=== PATIENT | male | born 1960 | race Caucasian/White ===

== ENCOUNTER → 2022-04-03 15:03 | Outpatient (CLI) | payer OTHER, SELFPAY ==
--- NOTE | 2022-04-03 | DI.RAD.S_ITS ---
PROCEDURE: XR CHEST 2V INDICATIONS: cough, unspecified TECHNIQUE: 2 views of the chest were acquired. COMPARISON: None. FINDINGS: Surgical changes and devices: None. Lungs and pleura: Lungs are clear. No pleural effusions or pneumothorax. Mediastinum: Mediastinal contours are normal. Heart size is normal. Bones and chest wall: No suspicious bony abnormalities. Soft tissues appear unremarkable. IMPRESSION: No acute cardiopulmonary abnormality. Dictated by: Yasir Tipton M.D. on 04/03/2022 at 16:34 Approved by: Yasir Tipton M.D. on 04/03/2022 at 16:36
== END ==
PROVIDERS: PCP Family Medicine; Referring Provider Family Medicine; Visit Provider Family Medicine
DX: R04.2 Hemoptysis (principal); R05.9 Cough, unspecified
CPT/HCPCS: 71046